=== PATIENT | female | born 1985 | race Two or more races ===

== ENCOUNTER 2021-07-07 06:44 | Observation (INO) | payer BC, MEDICAID | END 2021-07-07 09:27 | disposition home or self-care (01) | LOC: LDRP 06:44 | PROVIDERS: ADMIT Obstetrics & Gynecology Obstetrics; ATTEND Obstetrics & Gynecology Obstetrics | DX: O9A.213 Injury, poisoning and certain other consequences of external causes complicating pregnancy, third trimester (principal); S80.212A Abrasion, left knee, initial encounter; O62.9 Abnormality of forces of labor, unspecified; W06.XXXA Fall from bed, initial encounter; W01.0XXA Fall on same level from slipping, tripping and stumbling without subsequent striking against object, initial encounter; Y93.89 Activity, other specified; Y92.89 Other specified places as the place of occurrence of the external cause; Y99.8 Other external cause status | CPT/HCPCS: 59025; 76815; 81002; 94760; G0378 ==

== ENCOUNTER 2023-05-12 19:01 | Observation (INO) | payer MEDICAID ==
[~2023-05-12] VITALS: Ht 170.2 cm; Wt 83.9 kg
[2023-05-12] MEDS: LACTATED RINGER'S 1,000 ML IV ONE (19:56)
[2023-05-12] MEDS: ONDANSETRON HCL 4 MG/2 ML VIAL IV ONE (19:56)
== END 2023-05-12 20:41 | disposition home or self-care (01) ==
LOC: LDRP 19:01
PROVIDERS: ADMIT Obstetrics & Gynecology; ATTEND Obstetrics & Gynecology
DX: O21.2 Late vomiting of pregnancy (principal); O99.333 Smoking (tobacco) complicating pregnancy, third trimester; O26.893 Other specified pregnancy related conditions, third trimester; R14.1 Gas pain; F17.210 Nicotine dependence, cigarettes, uncomplicated; Z3A.33 33 weeks gestation of pregnancy
CPT/HCPCS: 59025; 81002; 94760; 96361; 96374; G0378; J2405